=== PATIENT | female | born 1960 | race African-American/Black ===

== ENCOUNTER 2016-07-10 15:40 | Inpatient (IN) | payer MEDICARE, SELFPAY ==
--- NOTE | ~2016-07-10 | DS ---
Discharge Summary [facility] [address] [place]. [address] NAME: VIV HUBER : 58 STATUS : ADM IN PAT#: [id number] AGE: 55 ADM/REG DATE : 07/11/16 MR#: [id number] REPORT SERV DATE: 07/13/16 DICTATED BY: POPPY HUNT DATE: 07/13/16 REPORT STATUS : Draft TRANSCRIBED BY: MODL DATE: 07/13/16 ADMISSION DATE: 07/11/2016 DISCHARGE DATE: GI: Dr. Stubbs. CONSULTING PHYSICIAN: GI, Dr. Ramirez. OUTPATIENT CARDIO: Dr. Zamarripa. FINAL DIAGNOSES: 1. Abdominal pain, nausea, and vomiting, multifactorial. 2. History of gastroparesis and gastroesophageal reflux disease. 3. Elevated digoxin, rule out digoxin toxicity. 4. Dilated cardiomyopathy with ejection fraction of 30% with AICD. 5. Acute on chronic congestive heart failure, systolic and diastolic. 6. Hypertension. 7. Diabetes. 8. Chronic kidney disease, 3. DIAGNOSTIC EXAMS: Abdominal acute series, no acute process is radiographically evident. Mesenteric duplex, no Doppler evidence of mesenteric ischemia. HOSPITAL COURSE: Please refer to the H and P done by Dr. Roche dated on 07/10/2016. Briefly, this is a 55-year-old female who has a history of chronic systolic and diastolic congestive heart failure, dilated cardiomyopathy with ejection fraction of 30%, gastroparesis, CKD 3. She has been having some abdominal pain. Follows up with Dr. Stubbs's nurse practitioner. She was started on erythromycin for her abdominal pain which has been going on for weeks. She was also recently started on amiodarone by her electronic transaction implementer. Later on, it got worse, and when she followed up with PA of Dr. Stubbs, she was referred to the hospital. She had the above test which was unremarkable. However, we found the digoxin to be elevated at 3.0 and she also has evidence for congestive heart failure with edema and a BNP of 1191. The patient was admitted by Dr. Roche. She was continued on her diuretics, and we placed her on a clear-liquid diet. We got GI involved and they started her on Reglan. The patient slowly improved. We did decrease her fluid overload, and we advanced her diet to GI low-residue, and she was able to tolerate it. She continues to have a little bit of abdominal pain, but it is not as bad as before, and her heart rate remained in the 50s and 60s. The patient is able to eat with minimal nausea and no vomiting, so with this improvement, we are going to be discharging her with the above diagnosis. She will be continuing her medications of aspirin 325 mg a day, Onglyza 5 mg a day, amiodarone 200 mg twice a day, Coreg 25 mg twice a day, vitamin D 1000 units a day, Melinda 180 mg a day, magnesium 400 mg twice a day, Prilosec 40 mg twice a day, MiraLax one packet a day, Reglan 10 mg q.a.c. and at bedtime, she will be given a prescription for that. Potassium 20 mEq a day, Requip 1 mg at bedtime, Zocor 20 mg at bedtime, Aldactone 12.5 mg a day, vitamin E 400 units a day, Demadex 20 mg a day, folic acid 1 mg a day, Xanax 0.25 mg p.r.n., and Procrit every 14 days. She will be off the digoxin as she was recently placed Discharge [address] [address] NAME: VIV HUBER : 58 STATUS : ADM IN [facility]#: [id number] AGE: 55 ADM/REG DATE : 07/11/16 MR#: [id number] REPORT SERV DATE: 07/13/16 DICTATED BY: POPPY HUNT DATE: 07/13/16 REPORT STATUS : Draft TRANSCRIBED BY: RAYMUNDO DATE: 07/13/16 on amiodarone. I would defer to Dr. Zamarripa if this needs to be restarted. She will be off the iron as she probably has anemia of chronic disease and this could cause some abdominal pain, nausea, and vomiting together with the metformin, and I would defer to the primary care physician if they want iron and metformin continued. The patient will follow up with her PCP in one to two weeks. Follow up with Dr. Zamarripa in four weeks and Dr. Stubbs in two to four weeks. This has been explained to the patient. Time spent 35 minutes. She was also told that if things get worse, not to hesitate to come back to the emergency room. DANNIELLE/RAYMUNDO Poppy Hunt M.D. / [id number] CC: Heather Acevedo NP
--- NOTE | ~2016-07-10 | HP ---
History And Physical [address] [place]. [address] NAME: VIV HUBER : 58 STATUS : ADM Malachi PAT#: [id number] AGE: 55 ADM/REG DATE : 07/10/16 MR#: [id number] REPORT SERV DATE: 07/10/16 DICTATED BY: ANAI ONEIL DATE: 07/10/16 REPORT STATUS : Draft TRANSCRIBED BY: MODL DATE: 07/10/16 DATE OF ADMISSION: 07/10/2016 EXAMINING PHYSICIAN: Anai Oneil M.D. REASON FOR ADMISSION: Gastroparesis with chronic abdominal pain. HISTORY OF PRESENT ILLNESS: This is a 55-year-old black female, who was seen in Dr. Stubbs's office on Thursday. IV fluid was given by her PA Bora, and the patient became increasing short of breath. She had increasing dyspnea on exertion. She also has a known dilated cardiomyopathy and is on medication for this. She recently was started on amiodarone on 06/23/2016 for palpitations. She was started on erythromycin with the intent for promotility, however, the patient has had increasing nausea and abdominal pain since starting the erythromycin. Erythromycin is also contraindicated in the face of amiodarone as well. Dr. Stubbs's PA requested direct admission to the hospital because of failure of improvement as an outpatient, however, the patient not been seen two days, and the stability was unable to be determined, and therefore admission was denied. She was advised to come to the emergency room last night. She did not come, she came today, was evaluated in the emergency room by nurse practitioner, Dr. Contreras. Her laboratory tests were normal. Again conversation with Dr. Stubbs's PA was insistent upon the patient being admitted for treatment of her chronic abdominal pain. Her chronic abdominal pain began around January 2016. She had a diabetic cardiomyopathy with this being treated since 2009. She has constipation. She has been vomiting, the last vomitus she had was two days ago. She had a bowel movement this morning, taking her MiraLAX. She just remains nauseated. This may be somewhat worse since starting the erythromycin as well. MEDICATIONS: Her home medication includes the following: Ropinirole 1 mg p.o. daily, spironolactone 25 mg a half p.o. daily, torsemide 20 mg p.o. daily, carvedilol 25 mg p.o. b.i.d., digoxin 0.125 mg p.o. daily, ferrous sulfate 325 p.o. b.i.d., Onglyza 5 mg p.o. daily, vitamin D3 1000 units p.o. daily, simvastatin 20 mg p.o. daily, magnesium 400 mg p.o. b.i.d., Melinda 180 mg p.o. daily, Klor-Con 20 mEq p.o. daily, vitamin E 400 units p.o. daily, metformin 500 mg p.o. b.i.d., folic acid 1 mg p.o. daily, omeprazole 40 mg p.o. b.i.d., aspirin 325 p.o. daily, MiraLAX as needed, and alprazolam 0.25 p.r.n. ALLERGIES: HER ALLERGIES ARE LISTED FOLLOWS: TORADOL, CODEINE, HYDROCODONE, OXYCODONE, VICODIN, AND NORVASC. PAST SURGICAL HISTORY: Tubal ligation 1984, tonsillectomy in 1998, partial hysterectomy in 1998, gallbladder in 2000, carpal tunnel syndrome 2007, trigger finger release 2007, pacemaker defibrillator placed in 2009 for cardiomyopathy, her last tetanus shot 2009, flu and pneumonia in 2015. History And Physical [address] [address] NAME: VIV HUBER : 58 STATUS : ADM Maalchi PAT#: [id number] AGE: 55 ADM/REG DATE : 07/10/16 MR#: [id number] REPORT SERV DATE: 07/10/16 DICTATED BY: ANAI ONEIL DATE: 07/10/16 REPORT STATUS : Draft TRANSCRIBED BY: MODL DATE: 07/10/16 Dr. Titi Zamarripa, sees her for her arrhythmias and she recently was started on amiodarone for palpitations. Selina Stubbs, or her PA has seen her, and Juanito Juarez M.D. for renal failure. SOCIAL HISTORY: She and her are . She has three children. One of them was killed. She does not smoke cigarettes, take any alcohol. She lives on [facility]. She was taking care of her mother who is 79, now in the longterm. FAMILY HISTORY: Mother has some debility and weakness and probably Alzheimer disease. Diabetes and high blood pressure run in the family. REVIEW OF SYSTEMS: She has had problems with congestive heart failure since 2001 with a cardiomyopathy. She does have gastroparesis, and this has been more of problem since January 2016. She has gastroesophageal reflux disease, high blood pressure, history of fatty liver. She has neck pain, radicular pain with three herniated discs in her neck. She has a bulging disk in her back at L5 and has had rheumatic fever as a child, diverticulosis, sleep apnea, and diabetes. She has had no recent melena or hematemesis. Her bowels do move. Her vomiting was last three days ago. She is not dehydrated. She does have increasing shortness of breath, dyspnea with exertion but no chest pain. No melena, hematemesis. No history of strokes. No unilateral weakness, fits, seizures, or convulsions. She has documented weight loss of 30 pounds, after nurse practitioner, Ben discussed with KERMIT Haddad. The remainder of the review of systems is negative. PHYSICAL EXAMINATION: GENERAL: A black female in no acute distress. VITAL SIGNS: Blood pressure initially 116/71 with a heart rate of 58, respiratory rate 18, oxygen saturation 99%. She is afebrile to touch. HEENT: EOMI. Sclerae are clear. Conjunctivae pink. NECK: No bruit without any JVD. CHEST: Clear to A and P. HEART: Regular S1, S2 without murmur, gallop, or click. ABDOMEN: Soft diffusely tender. No masses felt. Bowel sounds are positive. EXTREMITIES: Have 1+ pitting edema bilaterally. Distal pulses are palpable at dorsalis pedis and posterior tibial. NEUROLOGIC: She withdraws to plantar stimulation. Chemical Etching Processor is equal and symmetric bilaterally. Coordination intact. She has no tremor. She is symmetric and equal neurologically. SKIN: Without rash, ecchymosis, or bruising. LYMPHATICS: There is no adenopathy identifiable. LABORATORY DATA: The comprehensive metabolic profile showed a creatinine 1.35 with a BUN of 12, sodium 141, potassium 3.6, CO2 of 29, chloride 104. Liver tests were normal. The lipase was 61 and troponin 0.03. Bilirubin is 1.0. The hemoglobin 11.3, hematocrit 35.7, white count 4.9, platelets were 141,000. Urinalysis History And Physical [address] [address] NAME: VIV HUBER : 58 STATUS : ADM Malachi PAT#: [id number] AGE: 55 ADM/REG DATE : 07/10/16 MR#: [id number] REPORT SERV DATE: 07/10/16 DICTATED BY: ANAI ONEIL DATE: 07/10/16 REPORT STATUS : Draft TRANSCRIBED BY: RAYMUNDO DATE: 07/10/16 showed a specific gravity of 1.004, pH 6, RBC 2 and WBC less than 1 per high-powered field. Her vitamin D level was 43, which is within normal range. Her hemoglobin A1c was 5.4 on 07/04/2016. Review of her radiology showed no obstruction on the acute abdominal series done today. CT scan of the abdomen and pelvis, done 05/22/2016, showed stable appearance of the small exophytic abnormality of lower pole of right kidney and enlarging liver with a fat containing umbilical hernia. She has had previous CT scans 03/10/2016 and 10/13/2015. ASSESSMENT: 1. Abdominal pain and nausea. This is perhaps exacerbated by the erythromycin. Contributing factors may be the iron which we may be able to discontinue for now. Other medication that may be implicate include digoxin, we will check digoxin level. The patient is being treated with the amiodarone at 200 hours b.i.d., and erythromycin has been added to this which is a contraindication. Therefore, we will discontinue the erythromycin. The use of Reglan has not been used in the past. There is moderate interaction with erythromycin and Reglan and therefore its discontinuation will allow for an intermediate level interaction with amiodarone. None of the other drugs on review with pharmacist indicate much interaction other than slight possibly decrease in the level of digoxin in the blood. 2. Dilated cardiomyopathy. The patient is volume overload at this point, with edema of her lower extremities. We will not add any additional. She does have some jugular venous distention at 30 degrees. I do not believe that further IV fluid will be necessary. 3. Gastroparesis. 4. Restless legs syndrome. 5. History of hypertension. 6. History of reflux esophagitis. 7. Fatty liver. 8. Diabetes type 2. 9. History of back pain. 10.History of diverticulosis. 11.History of sleep apnea. PLAN: I will put in to observation. I do not see any other intervention that may be given. I will give two doses of IV Reglan followed by oral dosing. The only other consideration that we might give is the stomach is distended from gastroparesis. Perhaps NG tube decompression with IV fluid for a few days. We will consult Dr. Stubbs to see if this track of therapy may be something desirable, otherwise try initiating the Reglan, discontinuing the erythromycin, and observe for improvement. ERUM/RAYMUNDO Anai Oneil M.D. History And Physical [address] [address] NAME: VIV HUBER : 58 STATUS : ADM Malachi PAT#: [id number] AGE: 55 ADM/REG DATE : 07/10/16 MR#: [id number] REPORT SERV DATE: 07/10/16 DICTATED BY: ANAI ONEIL DATE: 07/10/16 REPORT STATUS : Draft TRANSCRIBED BY: RAYMUNDO DATE: 07/10/16 / [id number] CC: Nate Beck Jr, Heather Matos M.D. Gregg Shander, M.D.
--- NOTE | ~2016-07-10 | CN ---
Consultation Report [facility] [address] [place]. [address] NAME: VIV CORNEJO : 58 STATUS : ADM IN PAT#: [id number] AGE: 55 ADM/REG DATE : 07/11/16 MR#: [id number] REPORT SERV DATE: 07/11/16 DICTATED BY: CHANO COY DATE: 07/11/16 REPORT STATUS : Draft TRANSCRIBED BY: RAYMUNDO DATE: 07/11/16 GI CONSULTATION DATE OF CONSULTATION: 07/11/2016 REASON FOR CONSULTATION: Evaluation and management of nausea, vomiting, abdominal pain, and gastroparesis. HISTORY OF PRESENT ILLNESS: Ms. Cornejo is a 55-year-old female patient, who is known to Dr. Selina Stubbs in the outpatient setting, also being seen by her nurse practitioner, Irma Sahni, for complaints of abdominal pain, nausea, and abdominal distention. She tells me that her symptoms have been ongoing since 01/2016. She states she has abdominal discomfort as well as nausea. She tells me that it feels like her abdomen is blown-up with the balloon. She eats. She gets more distended. She states that she has very little vomiting, but she has chronic abdominal pain. She has had a recent EGD by Dr. Stubbs. This was done on 05/28/2016 with findings of a hiatal hernia. Stomach appeared normal. Duodenum appeared normal. She had random biopsies, which were negative except for some mild gastritis. She has a history of having a capsule endoscopy, this was done in 2014, which was essentially negative, and it was done for iron-deficiency anemia and Hemoccult-positive stools. She states that she has never been on Reglan for her gastroparesis. I have been unable to locate her gastric emptying study results. She was given some IV fluids last week; however, she states this did not help. She complains of shortness of breath especially when getting up and moving around. She was started on erythromycin several months ago which she states has not helped her nausea and abdominal discomfort at all. She has constipation unless she takes MiraLAX. She does not have a bowel movement. She states when she drinks the MiraLAX, she does not become nauseous that typically she does well with liquids. She had an acute abdominal series, which was negative. I have discussed with her that we will try a different medication route to see if it gives her any benefit, also plan to order a gastric emptying study as well as a mesenteric ultrasound to assess her mesenteric vasculature. PAST MEDICAL HISTORY: Positive for gastroparesis, acute on chronic abdominal pain, GI bleeding, migraine headaches, cardiomyopathy, congestive heart failure, hypertension, rheumatic fever as a child, history of AICD, sleep apnea, no CPAP, pneumonia, back pain, arthritis, GERD, constipation, diverticulosis, internal hemorrhoids, hysterectomy, diabetes, anemia, trigger finger release, tonsillectomy, carpal tunnel surgery, pacemaker placement, colonoscopy, and EGD. FAMILY HISTORY: Noncontributory from a GI standpoint. ALLERGIES: LISTED TO CODEINE, HYDROCODONE, NORVASC, EFFEXOR, TORADOL, LATEX, STRAWBERRY, AND OXYCODONE. HOME MEDICATIONS: Xanax, Cordarone, aspirin, Coreg, vitamin D3, Lanoxin, ferrous sulfate, Consultation Report [address] [place]. [address] NAME: VIV CORNEJO : 58 STATUS : ADM IN PAT#: [id number] AGE: 55 ADM/REG DATE : 07/11/16 MR#: [id number] REPORT SERV DATE: 07/11/16 DICTATED BY: CHANO COY DATE: 07/11/16 REPORT STATUS : Draft TRANSCRIBED BY: RAYMUNDO DATE: 07/11/16 Melinda, folic acid, magnesium oxide, Glucophage, Prilosec, MiraLAX, Klor-Con, Requip, Onglyza, Zocor, Aldactone, vitamin E, Demadex, and Procrit. REVIEW OF SYSTEMS: A 10-point review of systems has been obtained with pertinent positives being addressed in the history of present illness. PHYSICAL EXAMINATION: VITAL SIGNS: Temperature is 98.2, pulse 53, respirations 22, and blood pressure is 131/64. NEUROLOGIC: Reveals an alert, female, resting in bed. No focal deficits. GENERAL: Cooperative. She is in mild distress secondary to nausea and abdominal pain. She is awake, alert, and oriented x3. HEAD, EARS, EYES, NOSE, AND THROAT: Anicteric. Pupils are equal, round, and reactive to light and accommodation. Normocephalic and atraumatic. NECK: No JVD. No palpable nodes. LUNGS: Clear anteriorly. Normal respiratory effort exhibited. Equal expansion. CARDIOVASCULAR SYSTEM: Regular rate and rhythm. ABDOMEN: Soft and tender to palpation in the epigastric region. Hypoactive bowel sounds. Mild distention. No rebound or guarding elicited on exam. EXTREMITIES: No edema. Normal distal pulses. SKIN: Warm, dry, and intact. PERTINENT LABORATORY DATA: Sodium 141, potassium 3.6, BUN is 12, creatinine is 1.35. White blood cell count is 4.9, hemoglobin 11.3, hematocrit is 35.2, and platelet count is 141. Lipase 61. Alkaline phosphatase 54, ALT 12, and AST 5. ASSESSMENT: 1. Abdominal pain, acute on chronic, with bloating and distention. 2. History of gastroparesis. 3. Restless legs syndrome. 4. Volume overload with shortness of breath. 5. Diabetes. PLAN: 1. Decrease her to clear liquid diet. 2. Reglan IV as well as PPI IV. 3. We will check a gastric emptying study. 4. We will check a mesenteric ultrasound. We will follow. ELI/RAYMUNDO Wellington MICHELLE Ramirez Consultation Report [address] [place]. [address] NAME: VIV CORNEJO : 58 STATUS : ADM IN [facility]#: [id number] AGE: 55 ADM/REG DATE : 07/11/16 MR#: [id number] REPORT SERV DATE: 07/11/16 DICTATED BY: CHANO COY DATE: 07/11/16 REPORT STATUS : Draft TRANSCRIBED BY: TEAGANL DATE: 07/11/16 / [id number] CC: Nate Beck Jr, MD Dominga Tavarez, ÁNGEL
[2016-07-10 14:52] LABS: BASOPHILS 0.4 %; BASOPHILS ABSOLUTE 0.02 10/3/uL (0.0-0.16); EOSINOPHILS 2.3 %; EOSINOPHILS ABSOLUTE 0.11 10/3/uL (0.0-0.53); HEMATOCRIT 35.7 % (36.0-48.0); HEMOGLOBIN 11.3 g/dL (12.0-16.0); IMMATURE GRANULOCYTES 0.4 %; IMMATURE GRANULOCYTES ABSOLUTE 0.02 10/3/uL (0.0-0.11); LYMPHOCYTES 27.5 %; LYMPHOCYTES ABSOLUTE 1.34 10/3/uL (0.67-4.30); MEAN CORPUS HGB CONC 31.7 g/dL (32.0-36.0); MEAN CORPUSCULAR HEMOGLOB 25.5 pg (26.0-34.0); MEAN CORPUSCULAR VOLUME 80.6 fL (80-100); MONOCYTES 11.1 %; MONOCYTES ABSOLUTE 0.54 10/3/uL (0.21-1.20); NEUTROPHILS 58.3 %; NEUTROPHILS ABSOLUTE 2.84 10/3/uL (2.02-8.40); PLATELET COUNT 141 10/3/uL (150-400); RBC DISTRIBUTION WIDTH 17.8 % (12.0-16.0); RED CELL COUNT 4.43 10/6/uL (4.0-5.6); WHITE BLOOD CELLS 4.9 10/3/uL (4.5-10.5)
[2016-07-10 14:52] LABS: ASCORBIC ACID (UR NOT ORDER) NEG (NEG); BILIRUBIN, URINE NEGATIVE (NEG); KETONE, URINE NEGATIVE (NEG); LEUKOCYTE ESTERASE(NOT OR NEG (NEG); NITRITE (URINE) NEG (NEG); WBC (NOT ORDERED) (RFLEX) < 1 (0-5)
[2016-07-10 14:53] LABS: A/G RATIO 1.1 (0.7-1.9); ALBUMIN 3.4 G/DL (3.5-5.0); ALKALINE PHOSPHATASE 54 U/L (45-117); BUN (BLOOD UREA NITROGEN) 12 MG/DL (6-23); CALCIUM, SERUM 8.8 MG/DL (8.5-10.4); CHLORIDE, SERUM 104 MMOL/L (96-112); CO2 (CARBON DIOXIDE) 29 MMOL/L (24-34); CREATININE 1.35 MG/DL (0.55-1.02); ER CBC TAT 0 Hrs 25 Mins; GFR AFRICAN AMERICAN 51 ML/MIN (>=60); GFR NON AFRICAN AMERICAN 44 ML/MIN (>=60); GLOBULIN 3.1 G/DL (2.5-4.1); GLUCOSE, SERUM 84 MG/DL (60-99); MANUAL DIFF NO %; POTASSIUM, SERUM 3.6 MMOL/L (3.5-5.3); SGOT(AST) 5 U/L (5-40); SGPT(ALT) 12 U/L (5-65); SODIUM, SERUM 141 MMOL/L (135-148); TOTAL PROTEIN 6.5 G/DL (6.0-8.5)
[2016-07-10 15:30] LABS: BASOPHILS 1 %; BASOPHILS ABSOLUTE (CALC) 0.05 10/3/uL (0.0-0.16); EOSINOPHILS 3 %; EOSINOPHILS ABSOLUTE (CALC) 0.15 10/3/uL (0.0-0.53); ER DIFF TAT 1 Hrs 03 Mins; LYMPHOCYTES 15 %; LYMPHOCYTES ABSOLUTE (CALC) 0.74 10/3/uL (0.67-4.30); MONOCYTES 8 %; MONOCYTES ABSOLUTE (CALC) 0.39 10/3/uL (0.21-1.20); NEUTROPHILS ABSOLUTE (CALC) 3.58 10/3/uL (2.02-8.40); SEGMENTED NEUTROPHIL (0) 73 %; TOTAL NUCLEATED CELLS 100
[2016-07-10 15:31] LABS: ANISOCYTOSIS 1+ (5-10/OIF) (0-5/OIF); PLATELET ESTIMATE ADQ (ADEQUATE)
[~2016-07-10 15:40] MED LIST: ALLEGRA180 PO; ASA5GR PO; B121000P IM; BENTYL10 PO; CARDU2 PO; COR20 PO; COREG25 PO; DEMA20 PO; DIGITEK0.25 MG PO; FL250 PO; FOLIC PO; GLUCPH PO; HCTZ12.5 PO; HEMOCYTE324 MG PO; HYDROCHLOROT25 MG OR; IRON 65MG; IRON325 MG PO; KLOR-CON M2020 MEQ PO; KLOR-CON20 MEQ PO; L40 PO; L80 PO; LISINOPRIL40 MG PO; MAGOX4 PO; MIRALAXPKT PO; OTC IRON PO; PEP10 PO; PEP20 PO; PRILO PO; PRILOSEC40 MG PO; PRIN20 PO; REQUIP1 PO; SPIRO25 PO; VITAMIN B-121000 MC1 SL; VITAMIN D1000 UNI1 PO; X25 PO; ZESTRIL20 MG PO; ZOCOR40 PO
[2016-07-10 15:51] LABS: TROPONIN I 0.03 NG/ML (<0.05)
[2016-07-10] MEDS ORDERED: CORDARONE PO (17:18)
[2016-07-10] MEDS ORDERED: REQUIP1 PO (17:18)
[2016-07-10] MEDS ORDERED: DEMA20 PO (17:19)
[2016-07-10] MEDS ORDERED: LAN125 PO (17:19)
[2016-07-10] MEDS ORDERED: SPIRO25 PO (17:19)
[2016-07-10] MEDS ORDERED: COREG25 PO (17:19)
[2016-07-10] MEDS ORDERED: FOLIC PO (17:19)
[2016-07-10] MEDS ORDERED: VITAMIN D31000 UNIT PO (17:21)
[2016-07-10] MEDS ORDERED: ONGLYZA5 MG PO (17:21)
[2016-07-10] MEDS ORDERED: FERROUS SULF325 M1 PO (17:21)
[2016-07-10] MEDS ORDERED: PRILOSEC40 MG PO (17:22)
[2016-07-10] MEDS ORDERED: ZOCOR20 PO (17:22)
[2016-07-10] MEDS ORDERED: ALLEGRA180 PO (17:23)
[2016-07-10] MEDS ORDERED: KLOR-CON M2020 MEQ PO (17:23)
[2016-07-10] MEDS ORDERED: MAGOX4 PO (17:23)
[2016-07-10] MEDS ORDERED: VITE PO (17:31)
[2016-07-10] MEDS ORDERED: ASA5GR PO (17:32)
[2016-07-10] MEDS ORDERED: MIRALAX POWDER1 PKT PO (17:32)
[2016-07-10] MEDS ORDERED: GLUCPH PO (17:32)
[2016-07-10] MEDS ORDERED: X25 PO (17:35)
[2016-07-10] MEDS ORDERED: PROCRIT (17:36)
[2016-07-10 21:25] LABS: PREALBUMIN 21.6 MG/DL (17.0-43.0)
[2016-07-12 04:21] LABS: BASOPHILS 0.6 %; BASOPHILS ABSOLUTE 0.03 10/3/uL (0.0-0.16); EOSINOPHILS 4.5 %; EOSINOPHILS ABSOLUTE 0.21 10/3/uL (0.0-0.53); HEMATOCRIT 35.4 % (36.0-48.0); HEMOGLOBIN 11.2 g/dL (12.0-16.0); IMMATURE GRANULOCYTES 0.4 %; IMMATURE GRANULOCYTES ABSOLUTE 0.02 10/3/uL (0.0-0.11); LYMPHOCYTES 34.5 %; LYMPHOCYTES ABSOLUTE 1.61 10/3/uL (0.67-4.30); MEAN CORPUS HGB CONC 31.6 g/dL (32.0-36.0); MEAN CORPUSCULAR HEMOGLOB 25.7 pg (26.0-34.0); MEAN CORPUSCULAR VOLUME 81.2 fL (80-100); MONOCYTES 11.1 %; MONOCYTES ABSOLUTE 0.52 10/3/uL (0.21-1.20); NEUTROPHILS 48.9 %; NEUTROPHILS ABSOLUTE 2.28 10/3/uL (2.02-8.40); PLATELET COUNT 136 10/3/uL (150-400); RBC DISTRIBUTION WIDTH 17.4 % (12.0-16.0); RED CELL COUNT 4.36 10/6/uL (4.0-5.6); WHITE BLOOD CELLS 4.7 10/3/uL (4.5-10.5)
[2016-07-12 04:23] LABS: MANUAL DIFF NO %
[2016-07-12 04:48] LABS: BUN (BLOOD UREA NITROGEN) 11 MG/DL (6-23); CALCIUM, SERUM 8.7 MG/DL (8.5-10.4); CHLORIDE, SERUM 102 MMOL/L (96-112); CO2 (CARBON DIOXIDE) 28 MMOL/L (24-34); CREATININE 1.36 MG/DL (0.55-1.02); GFR AFRICAN AMERICAN 50 ML/MIN (>=60); GFR NON AFRICAN AMERICAN 43 ML/MIN (>=60); GLUCOSE, SERUM 88 MG/DL (60-99); POTASSIUM, SERUM 3.8 MMOL/L (3.5-5.3); SODIUM, SERUM 141 MMOL/L (135-148)
[2016-07-12 04:49] LABS: DIGOXIN 2.2 NG/ML (0.8-2.0)
[2016-07-12 06:04] LABS: PLATELET ESTIMATE SLT DEC (ADEQUATE)
[2016-07-13 06:06] LABS: BUN (BLOOD UREA NITROGEN) 13 MG/DL (6-23); CALCIUM, SERUM 8.6 MG/DL (8.5-10.4); CHLORIDE, SERUM 102 MMOL/L (96-112); CO2 (CARBON DIOXIDE) 27 MMOL/L (24-34); CREATININE 1.62 MG/DL (0.55-1.02); DIGOXIN 1.8 NG/ML (0.8-2.0); GFR AFRICAN AMERICAN 41 ML/MIN (>=60); GFR NON AFRICAN AMERICAN 35 ML/MIN (>=60); GLUCOSE, SERUM 91 MG/DL (60-99); POTASSIUM, SERUM 3.7 MMOL/L (3.5-5.3); SODIUM, SERUM 141 MMOL/L (135-148)
[2016-07-13] MEDS ORDERED: REG PO (10:08)
[2016-12-19] MEDS ORDERED: TRADJENTA5 MG PO (19:35)
[2016-12-19] MEDS ORDERED: REQUIP1 PO (19:35)
[2016-12-19] MEDS ORDERED: DEMA20 PO ×2 (19:35)
[2016-12-19] MEDS ORDERED: COREG3 PO (19:36)
[2016-12-19] MEDS ORDERED: REGL PO (19:36)
[2016-12-19] MEDS ORDERED: CORDARONE PO (19:37)
[2016-12-19] MEDS ORDERED: ASABAYER PO (19:37)
[2016-12-19] MEDS ORDERED: VITAMIN D1000 UNI1 PO (19:37)
[2016-12-19] MEDS ORDERED: PRILOSEC40 MG PO (19:37)
[2016-12-19] MEDS ORDERED: MIRALAX POWDER1 PKT PO (19:37)
[2016-12-19] MEDS ORDERED: VITE PO (19:38)
[2016-12-19] MEDS ORDERED: FOLIC PO (19:39)
[2016-12-19] MEDS ORDERED: ALLEGRA180 PO (19:39)
[2016-12-19] MEDS ORDERED: MAGOX4 PO (19:39)
[2016-12-19] MEDS ORDERED: KDUR20 PO (19:39)
[2016-12-19] MEDS ORDERED: ZOCOR20 PO (19:40)
[2016-12-19] MEDS ORDERED: SPIRO25 PO (19:40)
[2016-12-19] MEDS ORDERED: BENTYL20 PO (19:41)
[2016-12-19] MEDS ORDERED: ZANTAC300 MG PO (19:41)
[2016-12-19] MEDS ORDERED: PROCRIT INJECTION IV (19:42)
[2016-12-19] MEDS ORDERED: VENTOLIN HFA INH (19:43)
[2016-12-25] MEDS ORDERED: ASAB PO (10:22)
== END 2016-07-13 11:29 | disposition home or self-care (01) | DRG 291 ==
LOC: ER 15:40 → CDU1 18:04 → CDU2 18:30
PROVIDERS: Emergency Medicine; Internal Medicine; Nurse Practitioner Family
DX: I13.0 Hypertensive heart and chronic kidney disease with heart failure and stage 1 through stage 4 chronic kidney disease, or unspecified chronic kidney disease (principal); I50.43 Acute on chronic combined systolic (congestive) and diastolic (congestive) heart failure; E11.22 Type 2 diabetes mellitus with diabetic chronic kidney disease; I42.8 Other cardiomyopathies; N18.3 Chronic kidney disease, stage 3 (moderate); K21.9 Gastro-esophageal reflux disease without esophagitis; E11.43 Type 2 diabetes mellitus with diabetic autonomic (poly)neuropathy; K31.84 Gastroparesis; K76.0 Fatty (change of) liver, not elsewhere classified; G25.81 Restless legs syndrome; Z79.82 Long term (current) use of aspirin; Z88.5 Allergy status to narcotic agent; Z95.810 Presence of automatic (implantable) cardiac defibrillator
CPT/HCPCS: 74022; 80048; 80053; 80162; 81001; 82962; 83690; 83735; 83880; 84134; 84484; 85025; 93005; 93975; 96374; 99285; A9270-GY; C9113; J2405; J2765

== ENCOUNTER 2016-07-29 12:51 | Emergency (ER) | payer MEDICARE, SELFPAY ==
[~2016-07-29 12:51] MED LIST changes: +CORDARONE PO; +FERROUS SULF325 M1 PO; +LAN125 PO; +MIRALAX POWDER1 PKT PO; +ONGLYZA5 MG PO; +PROCRIT; +REG PO; +VITAMIN D31000 UNIT PO; +VITE PO; +ZOCOR20 PO
[2016-07-29 14:30] LABS: BASOPHILS 0.4 %; BASOPHILS ABSOLUTE 0.02 10/3/uL (0.0-0.16); EOSINOPHILS 3.1 %; EOSINOPHILS ABSOLUTE 0.16 10/3/uL (0.0-0.53); ER CBC TAT 0 Hrs 07 Mins; HEMOGLOBIN 12.7 g/dL (12.0-16.0); IMMATURE GRANULOCYTES 0.2 %; IMMATURE GRANULOCYTES ABSOLUTE 0.01 10/3/uL (0.0-0.11); LYMPHOCYTES 19.3 %; MEAN CORPUSCULAR HEMOGLOB 25.8 pg (26.0-34.0); MEAN CORPUSCULAR VOLUME 80.5 fL (80-100); MONOCYTES 9.2 %; MONOCYTES ABSOLUTE 0.48 10/3/uL (0.21-1.20); NEUTROPHILS 67.8 %; NEUTROPHILS ABSOLUTE 3.52 10/3/uL (2.02-8.40); PLATELET COUNT 121 10/3/uL (150-400); RBC DISTRIBUTION WIDTH 17.2 % (12.0-16.0); RED CELL COUNT 4.93 10/6/uL (4.0-5.6); WHITE BLOOD CELLS 5.2 10/3/uL (4.5-10.5)
[2016-07-29 14:31] LABS: HEMATOCRIT 39.7 % (36.0-48.0); MANUAL DIFF NO %
[2016-07-29 14:36] LABS: INTERNATIONAL NORMAL RATI 1.3 UNITS (-); PROTIME (NOT ORD) 15.8 SEC (12.0-14.5)
[2016-07-29 14:47] LABS: A/G RATIO 1.3 (0.7-1.9); ALBUMIN 3.5 G/DL (3.5-5.0); CALCIUM, SERUM 9.2 MG/DL (8.5-10.4); CHLORIDE, SERUM 100 MMOL/L (96-112); CO2 (CARBON DIOXIDE) 30 MMOL/L (24-34); CREATININE 1.99 MG/DL (0.55-1.02); GFR AFRICAN AMERICAN 32 ML/MIN (>=60); GFR NON AFRICAN AMERICAN 27 ML/MIN (>=60); GLOBULIN 2.8 G/DL (2.5-4.1); GLUCOSE, SERUM 101 MG/DL (60-99); POTASSIUM, SERUM 4.1 MMOL/L (3.5-5.3); SGOT(AST) 8 U/L (5-40); SGPT(ALT) 15 U/L (5-65); TOTAL BILIRUBIN 0.9 MG/DL (0-1.2); TOTAL PROTEIN 6.3 G/DL (6.0-8.5); TROPONIN I <0.02 NG/ML (<0.05)
[2016-07-29 14:48] LABS: ALKALINE PHOSPHATASE 75 U/L (45-117); BUN (BLOOD UREA NITROGEN) 17 MG/DL (6-23); SODIUM, SERUM 134 MMOL/L (135-148)
[2016-07-29 14:52] LABS: ANISOCYTOSIS 1+ (5-10/OIF) (0-5/OIF); HELMET CELLS OCC (0-2/OIF); HYPOCHROMIA 1+ (3-10/OIF) (0-2/OIF); MICROCYTES 1+ (5-10/OIF) (0-5/OIF); PLATELET ESTIMATE SLT DEC (ADEQUATE); POIKILOCYTOSIS 1+ (5-10/OIF) (0-5/OIF); TEARDROP SHAPED RBCS OCC (0-2/OIF)
[2016-12-19] MEDS ORDERED: TRADJENTA5 MG PO (19:35)
[2016-12-19] MEDS ORDERED: DEMA20 PO ×2 (19:35)
[2016-12-19] MEDS ORDERED: REQUIP1 PO (19:35)
[2016-12-19] MEDS ORDERED: COREG3 PO (19:36)
[2016-12-19] MEDS ORDERED: REGL PO (19:36)
[2016-12-19] MEDS ORDERED: CORDARONE PO (19:37)
[2016-12-19] MEDS ORDERED: PRILOSEC40 MG PO (19:37)
[2016-12-19] MEDS ORDERED: ASABAYER PO (19:37)
[2016-12-19] MEDS ORDERED: MIRALAX POWDER1 PKT PO (19:37)
[2016-12-19] MEDS ORDERED: VITAMIN D1000 UNI1 PO (19:37)
[2016-12-19] MEDS ORDERED: VITE PO (19:38)
[2016-12-19] MEDS ORDERED: MAGOX4 PO (19:39)
[2016-12-19] MEDS ORDERED: FOLIC PO (19:39)
[2016-12-19] MEDS ORDERED: KDUR20 PO (19:39)
[2016-12-19] MEDS ORDERED: ALLEGRA180 PO (19:39)
[2016-12-19] MEDS ORDERED: ZOCOR20 PO (19:40)
[2016-12-19] MEDS ORDERED: SPIRO25 PO (19:40)
[2016-12-19] MEDS ORDERED: ZANTAC300 MG PO (19:41)
[2016-12-19] MEDS ORDERED: BENTYL20 PO (19:41)
[2016-12-19] MEDS ORDERED: PROCRIT INJECTION IV (19:42)
[2016-12-19] MEDS ORDERED: VENTOLIN HFA INH (19:43)
[2016-12-25] MEDS ORDERED: ASAB PO (10:22)
== END 2016-07-29 17:39 | disposition home or self-care (01) ==
LOC: ER 12:51
PROVIDERS: Emergency Medicine
DX: I50.9 Heart failure, unspecified (principal); Z87.01 Personal history of pneumonia (recurrent); Z91.013 Allergy to seafood; Z88.5 Allergy status to narcotic agent; Z91.040 Latex allergy status; Z88.6 Allergy status to analgesic agent; Z88.8 Allergy status to other drugs, medicaments and biological substances; Z91.018 Allergy to other foods; Z79.899 Other long term (current) drug therapy; Z79.82 Long term (current) use of aspirin
CPT/HCPCS: 71010; 80053; 83880; 84484; 85025; 85610; 93005; 96374; 96376; 99285

== ENCOUNTER 2016-08-03 18:54 | Emergency (ER) | payer MEDICARE, SELFPAY ==
[2016-08-03 19:24] LABS: BASOPHILS 0.4 %; BASOPHILS ABSOLUTE 0.03 10/3/uL (0.0-0.16); EOSINOPHILS 1.2 %; EOSINOPHILS ABSOLUTE 0.09 10/3/uL (0.0-0.53); ER CBC TAT 0 Hrs 09 Mins; HEMATOCRIT 37.1 % (36.0-48.0); HEMOGLOBIN 11.7 g/dL (12.0-16.0); IMMATURE GRANULOCYTES 0.3 %; IMMATURE GRANULOCYTES ABSOLUTE 0.02 10/3/uL (0.0-0.11); LYMPHOCYTES 13.6 %; LYMPHOCYTES ABSOLUTE 1.04 10/3/uL (0.67-4.30); MANUAL DIFF NO %; MEAN CORPUS HGB CONC 31.5 g/dL (32.0-36.0); MEAN CORPUSCULAR HEMOGLOB 25.4 pg (26.0-34.0); MEAN CORPUSCULAR VOLUME 80.5 fL (80-100); MONOCYTES 11.7 %; NEUTROPHILS 72.8 %; NEUTROPHILS ABSOLUTE 5.59 10/3/uL (2.02-8.40); PLATELET COUNT 107 10/3/uL (150-400); RED CELL COUNT 4.61 10/6/uL (4.0-5.6); WHITE BLOOD CELLS 7.7 10/3/uL (4.5-10.5)
[2016-08-03 19:27] LABS: INTERNATIONAL NORMAL RATI 1.3 UNITS (-); PROTIME (NOT ORD) 15.9 SEC (12.0-14.5)
[2016-08-03 19:28] LABS: PARTIAL THROMBO TIME 33.5 SEC (22.5-37.2)
[2016-08-03 19:37] LABS: BUN (BLOOD UREA NITROGEN) 19 MG/DL (6-23); CALCIUM, SERUM 8.6 MG/DL (8.5-10.4); CHEST PAIN PROFILE TAT 0 Hrs 22 Mins; CHLORIDE, SERUM 102 MMOL/L (96-112); CO2 (CARBON DIOXIDE) 29 MMOL/L (24-34); CREATININE 1.79 MG/DL (0.55-1.02); GFR AFRICAN AMERICAN 36 ML/MIN (>=60); GFR NON AFRICAN AMERICAN 31 ML/MIN (>=60); GLUCOSE, SERUM 142 MG/DL (60-99); POTASSIUM, SERUM 4.6 MMOL/L (3.5-5.3); SODIUM, SERUM 138 MMOL/L (135-148); TROPONIN I 0.04 NG/ML (<0.05)
[2016-08-04] MEDS ORDERED: ALLEGRA180 PO (00:58)
[2016-08-04] MEDS ORDERED: FOLIC PO (00:59)
[2016-08-04] MEDS ORDERED: ASAEC PO (00:59)
[2016-08-04] MEDS ORDERED: MAGOX4 PO (01:00)
[2016-08-04] MEDS ORDERED: PRILOSEC40 MG PO (01:00)
[2016-08-04] MEDS ORDERED: PR25 PO (01:01)
[2016-08-04] MEDS ORDERED: ONGLYZA5 MG PO (01:01)
[2016-08-04] MEDS ORDERED: REQUIP1 PO (01:02)
[2016-08-04] MEDS ORDERED: SPIRO25 PO (01:03)
[2016-08-04] MEDS ORDERED: VITAMIN D31000 UNIT PO (01:04)
[2016-08-04] MEDS ORDERED: X5 PO (01:04)
[2016-08-04] MEDS ORDERED: COREG25 PO (01:05)
[2016-08-04] MEDS ORDERED: KLOR-CON M2020 MEQ PO (01:05)
[2016-08-04] MEDS ORDERED: MIRALAX (01:06)
[2016-08-04] MEDS ORDERED: ZOFRAN4 PO (01:06)
[2016-08-04] MEDS ORDERED: REG5 PO (01:07)
[2016-08-04] MEDS ORDERED: PROCRIT (01:07)
[2016-08-04] MEDS ORDERED: DEMA20 PO (01:08)
[2016-08-04] MEDS ORDERED: ZOCOR20 PO (01:08)
[2016-08-04] MEDS ORDERED: [UNRECOGNIZED DRUG - OTHER] (01:09)
[2016-12-19] MEDS ORDERED: TRADJENTA5 MG PO (19:35)
[2016-12-19] MEDS ORDERED: DEMA20 PO ×2 (19:35)
[2016-12-19] MEDS ORDERED: REQUIP1 PO (19:35)
[2016-12-19] MEDS ORDERED: REGL PO (19:36)
[2016-12-19] MEDS ORDERED: COREG3 PO (19:36)
[2016-12-19] MEDS ORDERED: MIRALAX POWDER1 PKT PO (19:37)
[2016-12-19] MEDS ORDERED: VITAMIN D1000 UNI1 PO (19:37)
[2016-12-19] MEDS ORDERED: PRILOSEC40 MG PO (19:37)
[2016-12-19] MEDS ORDERED: CORDARONE PO (19:37)
[2016-12-19] MEDS ORDERED: ASABAYER PO (19:37)
[2016-12-19] MEDS ORDERED: VITE PO (19:38)
[2016-12-19] MEDS ORDERED: KDUR20 PO (19:39)
[2016-12-19] MEDS ORDERED: MAGOX4 PO (19:39)
[2016-12-19] MEDS ORDERED: ALLEGRA180 PO (19:39)
[2016-12-19] MEDS ORDERED: FOLIC PO (19:39)
[2016-12-19] MEDS ORDERED: ZOCOR20 PO (19:40)
[2016-12-19] MEDS ORDERED: SPIRO25 PO (19:40)
[2016-12-19] MEDS ORDERED: ZANTAC300 MG PO (19:41)
[2016-12-19] MEDS ORDERED: BENTYL20 PO (19:41)
[2016-12-19] MEDS ORDERED: PROCRIT INJECTION IV (19:42)
[2016-12-19] MEDS ORDERED: VENTOLIN HFA INH (19:43)
[2016-12-25] MEDS ORDERED: ASAB PO (10:22)
== END 2016-08-04 03:00 | disposition home or self-care (01) ==
LOC: ER 18:54
PROVIDERS: Emergency Medicine
DX: J18.9 Pneumonia, unspecified organism (principal); R04.2 Hemoptysis; E87.70 Fluid overload, unspecified; D64.9 Anemia, unspecified; E11.43 Type 2 diabetes mellitus with diabetic autonomic (poly)neuropathy; K31.84 Gastroparesis; I11.0 Hypertensive heart disease with heart failure; I50.9 Heart failure, unspecified; Z95.810 Presence of automatic (implantable) cardiac defibrillator; Z91.013 Allergy to seafood; Z88.5 Allergy status to narcotic agent; Z88.1 Allergy status to other antibiotic agents; Z91.040 Latex allergy status; Z88.8 Allergy status to other drugs, medicaments and biological substances; Z79.899 Other long term (current) drug therapy; Z79.82 Long term (current) use of aspirin
CPT/HCPCS: 71020; 71250; 80048; 83605; 83735; 83880; 84484; 85025; 85610; 85730; 87040; 87070; 87205; 93005; 94640; 96372; 99285

== ENCOUNTER 2016-09-13 16:14 | Emergency (ER) | payer MEDICARE, SELFPAY ==
[~2016-09-13 16:14] MED LIST changes: +ASAEC PO; +MIRALAX; +PR25 PO; +REG5 PO; +X5 PO; +ZOFRAN4 PO; +[UNRECOGNIZED DRUG - OTHER]
[2016-09-13 17:13] LABS: BASOPHILS 0.7 %; BASOPHILS ABSOLUTE 0.03 10/3/uL (0.0-0.16); EOSINOPHILS 3.3 %; EOSINOPHILS ABSOLUTE 0.14 10/3/uL (0.0-0.53); HEMATOCRIT 35.7 % (36.0-48.0); HEMOGLOBIN 11.6 g/dL (12.0-16.0); IMMATURE GRANULOCYTES 0.2 %; IMMATURE GRANULOCYTES ABSOLUTE 0.01 10/3/uL (0.0-0.11); LYMPHOCYTES 26.8 %; LYMPHOCYTES ABSOLUTE 1.12 10/3/uL (0.67-4.30); MEAN CORPUS HGB CONC 32.5 g/dL (32.0-36.0); MEAN CORPUSCULAR HEMOGLOB 26.5 pg (26.0-34.0); MEAN CORPUSCULAR VOLUME 81.7 fL (80-100); MONOCYTES 13.2 %; MONOCYTES ABSOLUTE 0.55 10/3/uL (0.21-1.20); NEUTROPHILS 55.8 %; NEUTROPHILS ABSOLUTE 2.33 10/3/uL (2.02-8.40); PLATELET COUNT 93 10/3/uL (150-400); RBC DISTRIBUTION WIDTH 17.9 % (12.0-16.0); RED CELL COUNT 4.37 10/6/uL (4.0-5.6)
[2016-09-13 17:14] LABS: ER CBC TAT 0 Hrs 13 Mins; MANUAL DIFF NO %; WHITE BLOOD CELLS 4.2 10/3/uL (4.5-10.5)
[2016-09-13 17:19] LABS: A/G RATIO 1.1 (0.7-1.9); ALBUMIN 3.4 G/DL (3.5-5.0); ALKALINE PHOSPHATASE 101 U/L (45-117); BUN (BLOOD UREA NITROGEN) 23 MG/DL (6-23); CALCIUM, SERUM 8.7 MG/DL (8.5-10.4); CHLORIDE, SERUM 101 MMOL/L (96-112); CO2 (CARBON DIOXIDE) 25 MMOL/L (24-34); CREATININE 2.36 MG/DL (0.55-1.02); GFR AFRICAN AMERICAN 26 ML/MIN (>=60); GFR NON AFRICAN AMERICAN 22 ML/MIN (>=60); GLOBULIN 3.2 G/DL (2.5-4.1); INTERNATIONAL NORMAL RATI 1.3 UNITS (-); POTASSIUM, SERUM 4.1 MMOL/L (3.5-5.3); PROTIME (NOT ORD) 16.3 SEC (12.0-14.5); SGOT(AST) 19 U/L (5-40); SGPT(ALT) 24 U/L (5-65); SODIUM, SERUM 135 MMOL/L (135-148); TOTAL PROTEIN 6.6 G/DL (6.0-8.5); TROPONIN I <0.02 NG/ML (<0.05)
[2016-09-13 17:20] LABS: GLUCOSE, SERUM 137 MG/DL (60-99)
[2016-09-13 17:23] LABS: ANISOCYTOSIS 1+ (5-10/OIF) (0-5/OIF); GIANT PLATELET RARE; PLATELET ESTIMATE DEC (ADEQUATE); POIKILOCYTOSIS 1+ (5-10/OIF) (0-5/OIF)
[2016-12-19] MEDS ORDERED: DEMA20 PO ×2 (19:35)
[2016-12-19] MEDS ORDERED: REQUIP1 PO (19:35)
[2016-12-19] MEDS ORDERED: TRADJENTA5 MG PO (19:35)
[2016-12-19] MEDS ORDERED: REGL PO (19:36)
[2016-12-19] MEDS ORDERED: COREG3 PO (19:36)
[2016-12-19] MEDS ORDERED: PRILOSEC40 MG PO (19:37)
[2016-12-19] MEDS ORDERED: MIRALAX POWDER1 PKT PO (19:37)
[2016-12-19] MEDS ORDERED: VITAMIN D1000 UNI1 PO (19:37)
[2016-12-19] MEDS ORDERED: ASABAYER PO (19:37)
[2016-12-19] MEDS ORDERED: CORDARONE PO (19:37)
[2016-12-19] MEDS ORDERED: VITE PO (19:38)
[2016-12-19] MEDS ORDERED: MAGOX4 PO (19:39)
[2016-12-19] MEDS ORDERED: ALLEGRA180 PO (19:39)
[2016-12-19] MEDS ORDERED: FOLIC PO (19:39)
[2016-12-19] MEDS ORDERED: KDUR20 PO (19:39)
[2016-12-19] MEDS ORDERED: SPIRO25 PO (19:40)
[2016-12-19] MEDS ORDERED: ZOCOR20 PO (19:40)
[2016-12-19] MEDS ORDERED: ZANTAC300 MG PO (19:41)
[2016-12-19] MEDS ORDERED: BENTYL20 PO (19:41)
[2016-12-19] MEDS ORDERED: PROCRIT INJECTION IV (19:42)
[2016-12-19] MEDS ORDERED: VENTOLIN HFA INH (19:43)
[2016-12-25] MEDS ORDERED: ASAB PO (10:22)
== END 2016-09-13 20:04 | disposition home or self-care (01) ==
LOC: ER 16:14
PROVIDERS: Emergency Medicine
DX: I50.9 Heart failure, unspecified (principal); J18.9 Pneumonia, unspecified organism; E11.9 Type 2 diabetes mellitus without complications; Z95.0 Presence of cardiac pacemaker; Z98.51 Tubal ligation status; Z90.49 Acquired absence of other specified parts of digestive tract; Z90.710 Acquired absence of both cervix and uterus; Z90.89 Acquired absence of other organs; Z88.5 Allergy status to narcotic agent; Z88.1 Allergy status to other antibiotic agents; Z91.013 Allergy to seafood; Z91.040 Latex allergy status; Z91.018 Allergy to other foods; Z88.8 Allergy status to other drugs, medicaments and biological substances; Z91.09 Other allergy status, other than to drugs and biological substances; Z88.6 Allergy status to analgesic agent; Z79.82 Long term (current) use of aspirin; Z79.899 Other long term (current) drug therapy
CPT/HCPCS: 71010; 80053; 83880; 84484; 85025; 85610; 93005; 96374; 99285; A9270-GY